=== PATIENT | male | born 1980 | race African-American/Black ===

== ENCOUNTER 2020-02-24 08:39 | Emergency (ER) | payer SELFPAY ==
[~2020-02-24] VITALS: Ht 177.8 cm; Wt 88.5 kg
--- NOTE | 2020-02-24 08:39 | NUR ---
Patient BIBA BLS, transferred to bed 6. RN evaluating patient at bedside.
--- NOTE | 2020-02-24 08:40 | NUR ---
Dr. Miramontes is evaluating the patient at bedside.
[2020-02-24 08:46] VITALS: BP 157/91
[2020-02-24] MEDS: LIDOCAINE 2% 1000 MG/50 ML VIAL INJ ONE ×2 (08:46→09:26)
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
--- NOTE | 2020-02-24 08:53 | NUR ---
X-Ray at bedside.
[2020-02-24] MEDS ORDERED: BACITRACIN OINT 500 UNITS/GM PKT TP ONE ×2 (09:15→09:20)
--- NOTE | 2020-02-24 09:15 | NUR ---
Pt refusing sutures and requested a bandaid instead. Dr. Fe MCCLOUD for Bacitracin and large bandaid.
--- NOTE | 2020-02-24 09:15 | NUR ---
Bacitracin ointment placed to abrasion on the abrasions on right elbow and covered by non-adherensive dressing.
[2020-02-24 09:21] VITALS: BP 148/89
--- NOTE | 2020-02-24 09:21 | NUR ---
Patient discharged with v/s stable. Written and verbal after care instructions given and explained, however, pt refused to sign on the discharge paperwork and refused to get the priscription.
== END 2020-02-24 09:15 | disposition home or self-care (01) ==
LOC: MED 08:39
DX: S50.311A Abrasion of right elbow, initial encounter (principal); Z88.0 Allergy status to penicillin; W01.0XXA Fall on same level from slipping, tripping and stumbling without subsequent striking against object, initial encounter; Y93.01 Activity, walking, marching and hiking; Y92.89 Other specified places as the place of occurrence of the external cause; Y99.8 Other external cause status
CPT/HCPCS: 73080; 99283; J2001